=== PATIENT | male | born 1955 | race Caucasian/White ===

== ENCOUNTER 2017-10-17 15:17 | Emergency (ER) | payer BC ==
[2017-10-17 15:50] VITALS: BP 147/86
--- NOTE | 2017-10-17 16:47 | UC ---
Dental HPI - HPI Summary HPI Summary: The patient is a 62 y/o M presenting to [facility] with a chief complaint of burning sensation in his tongue with a white discharge starting two days ago. He was diagnosed with thrush four days ago by his PCP, for which he was given antibiotics for, but his symptoms have not improved. The pain is rated 4/10 in severity. There are no aggravating or alleviating factors. The thrush symptoms started after he had a bone graft of his tooth. - History of Current Complaint Chief Complaint: UCGeneralIllness Stated Complaint: DENTAL COMPLAINT Time Seen by Provider: 10/17/17 16:12 Hx Obtained From: Patient Onset/Duration: Sudden Onset, Lasting Days, Still Present Severity: Moderate Pain Intensity: 4 Pain Scale Used: 0-10 Numeric Aggravating Factor(s): Nothing Alleviating Factor(s): Nothing - Allergies/Home Medications Allergies/Adverse Reactions: Allergies Allergy/AdvReac Type Severity Reaction Status Date / Time Penicillins Allergy Unknown Verified 10/17/17 15:51 Reaction Details Home Medications: Home Medications Atorvastatin* [Lipitor 10 MG*] 10 mg PO DAILY 10/17/17 [History Confirmed ] Nystatin SUSPENSION ORAL SYR* 100,000 ml .ROUTE 10/17/17 [History] PMH/Surg Hx/FS Hx/Imm Hx - Additional Past Medical History Additional PMH: Oral thrush Endocrine History: Other Other Endocrine History: NEGATIVE: diabetes Cardiovascular History: Hypertension - Surgical History Surgical History: Yes Surgery Procedure, Year, and Place: fusion to neck 25yrs ago. bone graft on tooth 10/09/17 - Family History Known Family History: Positive: Hypertension - Social History Alcohol Use: None Substance Use Type: None Smoking Status (MU): Never Smoked Tobacco Review of Systems Constitutional: Other - NEGATIVE: fever ENT: Other - burning sensation on tongue with white discharge All Other Systems Reviewed And Are Negative: Yes Physical Exam - Summary Physical Exam Summary: VITAL SIGNS: Reviewed. GENERAL: Patient is a well-developed and nourished male who is lying comfortable in the stretcher. Patient is not in any acute respiratory distress. HEAD AND FACE: Normocephalic EYES: PERRLA, EOMI x 2. EARS: Hearing grossly intact. MOUTH: Oropharynx within normal limits. Slight amount of thrush, no tongue or lip swelling, airway is clear NECK: Supple, trachea is midline, no adenopathy, no JVD, no carotid bruit. CHEST: Symmetric, no tenderness at palpation LUNGS: Clear to auscultation bilaterally. No wheezing or crackles. CVS: Regular rate and rhythm, S1 and S2 present, no murmurs or gallops appreciated. ABDOMEN: Soft, non-tender. Bowel sounds are normal. No abdominal abnormal pulsations. EXTREMITIES: Full ROM in all major joints, no edema, no cyanosis or clubbing. NEURO: Alert and oriented x 3. No acute neurological deficits. Speech is normal and follows commands. SKIN: Dry and warm Triage Information Reviewed: Yes Vital Signs: Initial Vital Signs Temp 98.8 F 10/17/17 15:44 Pulse 70 10/17/17 15:44 Resp 16 10/17/17 15:44 BP 147/86 10/17/17 15:44 Pulse Ox 98 10/17/17 15:44 Vital Signs Reviewed: Yes Dental Complaint Course/Dx - Course Course Of Treatment: Patient is a 62-year-old male who presents to the urgent care with a chief complaint of having discharge in his mouth. Patient has been taking nystatin for 2 days but the symptoms have not improved. He reports that he is still having this burning sensation of the tongue and a white discharge. He has no other complaints. Physical exam shows that the patient has some thrush, therefore the patient was given fluconazole. He does not have any swelling of the tongue, and he doesn't have any airway compromise, therefore the patient was discharged home with follow-up with PCP. Patient was instructed that if he develops any fever, chills, swelling of the tongue, feeling that his throat is closing, the patient must go immediately to the emergency department for further workup and management. Patient understands and agrees. - Differential Dx/Diagnosis Provider Diagnoses: Oral candidiasis Discharge - Sign-Out/Discharge Documenting (check all that apply): Patient Departure - Patient will be discharged home. All imaging exams completed and their final reports reviewed: No Studies - Discharge Plan Condition: Stable Disposition: HOME Prescriptions: Fluconazole 150 MG (NF) [Diflucan 150 mg (NF)] 150 mg PO ONCE #2 tab Patient Education Materials: Yeast Infection (ED) Referrals: Manuel Rene MD [Primary Care Provider] - Additional Instructions: Take medications as instructed and adhere to plan Take Acetaminophen or ibuprofen for pain or fever Increase your fluid intake Return to the or go to the emergency department if symptoms worsen Follow-up with primary care physician in next 2-3 days - Billing Disposition and Condition Condition: STABLE Disposition: Home - Attestation Statements Document Initiated by Librado: Yes Documenting Scribe: Adore Travis Provider For Whom Librado is Documenting (Include Credential): Dr. Marques Potter MD Scribe Attestation: IAdore scribed for Dr. Marques Potter MD on 10/17/17 at 1912. Scribe Documentation Reviewed: Yes Provider Attestation: The documentation as recorded by the Adore curran accurately reflects the service I personally performed and the decisions made by me, Dr. Marques Potter MD
--- NOTE | 2017-10-20 21:15 | UC ---
- Progress Note Progress Note: 10/20/2017 tongue culture positive for Haemophilus Parainfluenxa and Prevotella malaninogenica. Pt Rx Fluconazole for Oral Candidiasis. Please call back Pt and advised to continue taking Fluconzaole PO and to start taking Clindamycin PO which was sent to pharmacy. Please also advised Pt to f/u w/ PCP to for check up to see if symptoms are improving. Thank you Meri Dorsey [facility] Discharge - Sign-Out/Discharge Documenting (check all that apply): Patient Departure - D/C home All imaging exams completed and their final reports reviewed: No Studies - Discharge Plan Condition: Stable Disposition: HOME Prescriptions: Clindamycin Cap(NF) [Clindamycin Cap 300 mg Cap(NF)] 300 mg PO TID #30 cap Fluconazole 150 MG (NF) [Diflucan 150 mg (NF)] 150 mg PO ONCE #2 tab Patient Education Materials: Yeast Infection (ED) Referrals: Manuel Rene MD [Primary Care Provider] - Additional Instructions: Take medications as instructed and adhere to plan Take Acetaminophen or ibuprofen for pain or fever Increase your fluid intake Return to the or go to the emergency department if symptoms worsen Follow-up with primary care physician in next 2-3 days - Billing Disposition and Condition Condition: STABLE Disposition: Home
== END 2017-10-17 16:53 | disposition home or self-care (01) ==
LOC: UCEAST 15:17
DX: B37.0 Candidal stomatitis (principal); Z88.0 Allergy status to penicillin
CPT/HCPCS: 87070; 87076; 87077; 87185; 87205; 87640; 87641; 99212; G0463